=== PATIENT | male | born 1985 | race Caucasian/White ===

== ENCOUNTER 2021-07-11 17:21 | Emergency (ER) | payer MEDICARE, OTHER ==
[~2021-07-11] VITALS: Ht 175.3 cm; Wt 90.7 kg
[~2021-07-11 17:21] MED LIST: ACETAMINOPHEN PO; AMPH10TA4 PO; ARIP30TA3 PO; DIAZ5TAB4 PO; FLUV150C PO; HYDROCODONE PO; METH-490 PO
[2021-07-11 17:50] VITALS: BP 129/75
--- NOTE | 2021-07-11 20:00 | NUR ---
PT IS NOT IN ROOM. PT LEFT BEFORE BEING SSEN BY .
== END 2021-07-11 20:01 | disposition left against medical advice (07) ==
LOC: ER 17:30
DX: Z53.21 Procedure and treatment not carried out due to patient leaving prior to being seen by health care provider (principal); F17.210 Nicotine dependence, cigarettes, uncomplicated; F32.9 Major depressive disorder, single episode, unspecified; F43.10 Post-traumatic stress disorder, unspecified

== ENCOUNTER → 2021-11-18 | Emergency (ER) | payer MEDICARE, OTHER | END | disposition left against medical advice (07) | LOC: ER 18:39 | DX: Z53.21 Procedure and treatment not carried out due to patient leaving prior to being seen by health care provider (principal) ==